=== PATIENT | female | born 2000 | race Caucasian/White ===

== ENCOUNTER 2022-03-14 13:05 | Emergency (ER) | payer BC, SELFPAY ==
[2022-03-14 14:37] VITALS: BP 102/69; PULSE 106; RESP 18; TEMP 37.4; O2SAT 100
--- NOTE | 2022-03-14 16:21 | ED.URI ---
HPI - URI/Sore Throat General Chief Complaint: Upper Respiratory Infection Stated Complaint: bodaches,chills,sorethroat Time Seen by Provider: 03/14/22 16:16 Source: patient Mode of arrival: ambulatory Limitations: no limitations History of Present Illness HPI Narrative: Patient presents today complaining of fever up to 100.3, body aches, sore throat, chills since yesterday. She currently rates her sore throat 10 and has been taking NyQuil with some relief. Denies any cough, congestion, rhinorrhea. Denies any sick contacts. Related Data Home Medications Medication Instructions Recorded Confirmed No Home Medications 03/14/22 03/14/22 Allergies Allergy/AdvReac Type Severity Reaction Status Date / Time No Known Allergies Allergy Verified 03/14/22 14:32 Review of Systems Review of Systems: CONSTITUTIONAL: Denies sweats.+ Fever, body aches, chills EYES: Denies visual changes, redness, or discharge. ENT: Denies rhinorrhea, congestion, otalgia.+ sore throat CARDIOVASCULAR: Denies chest pain, palpitations, or edema. RESPIRATORY: Denies cough or dyspnea. GASTROINTESTINAL: Denies abdominal pain, nausea, vomiting, or diarrhea. GENITOURINARY: Denies dysuria or hematuria. SKIN: Denies rash, itching, or wounds. MUSCULOSKELETAL: Denies back pain, joint pain, or myalgia. NEUROLOGIC: Denies headache, numbness, tingling, or weakness. PSYCH: Denies depression or anxiety. PMFSH Comments At time of signature, I have reviewed and agree with nursing past medical, surgical, social and family history unless otherwise noted. Please see nursing chart for further information. There is no relevant family history pertinent to the presenting complaint Exam Narrative: GENERAL: Well-appearing, well-nourished, and in no acute distress. HEAD: Normocephalic, atraumatic. EYES: EOMI. No redness or drainage. Conjunctivae normal. ENT: Mucous membranes pink and moist. Nares clear. No rhinorrhea. TMs normal bilaterally. Throat mildly erythematous without edema or exudate. Uvula midline. NECK: Normal AROM. Supple. No lymphadenopathy. CHEST: No respiratory distress. Clear to auscultation. HEART: Regular rate and rhythm. No murmur appreciated. Normal peripheral pulses. EXTREMITIES: Normal range of motion. No edema. SKIN: Warm, dry, no rash. Capillary refill normal. Normal skin turgor. NEURO: No focal deficits. Alert and oriented x3. Gait steady. PSYCH: Normal affect. No signs of depression or anxiety. Course Course Level of Care: Express Care Visit Vital Signs Vital signs: Vital Signs Temperature 99.4 F 03/14/22 14:37 Pulse Rate 106 H 03/14/22 14:37 Respiratory Rate 18 03/14/22 14:37 Blood Pressure 102/69 03/14/22 14:37 Pulse Oximetry 100 03/14/22 14:37 Oxygen Delivery Room Air 03/14/22 14:37 Temperature 99.4 F 03/14/22 14:37 Pulse Rate 106 H 03/14/22 14:37 Respiratory Rate 18 03/14/22 14:37 Blood Pressure 102/69 03/14/22 14:37 Pulse Oximetry 100 03/14/22 14:37 Oxygen Delivery Room Air 03/14/22 14:37 reviewed MDM - URI/Sore Throat Differential Diagnosis Differential diagnosis: Likely upper respiratory infection, viral infection, influenza, pharyngitis and other ( strep throat) Medical Records Attestation: I reviewed the patient's medical records. Medical records narrative: influenza negative Lab Data Attestation: I reviewed the patient's lab results. Labs: Influenza A Screen Negative Reference Range: Negative Influenza B Screen Negative Reference Range: Negative Strep Screen Presumptive Negative *(Reference Range: Negative)* Critical Care Time Critical Care Time Critical Care Time: No Discharge Plan Discharge Clinical Impression: Viral syndrome Patient Disposition: Home, Self-
== END 2022-03-14 16:46 | disposition home or self-care (01) ==
PROVIDERS: Emergency Provider Nurse Practitioner; PCP Family Medicine Sports Medicine
DX: B34.9 Viral infection, unspecified (principal)
CPT/HCPCS: 87081; 87804; 87880; 99203; G0463

== ENCOUNTER 2022-06-19 08:53 | Emergency (ER) | payer BC, SELFPAY ==
--- NOTE | 2022-06-19 09:11 | ED.URI ---
HPI - URI/Sore Throat General Stated Complaint: sorethroat Time Seen by Provider: 06/19/22 09:11 History of Present Illness HPI Narrative: 22 y/o female presented for c/o sore throat for 24 hours. Endorses mild runny nose and headache. Denies sick contacts. Not taking anything for symptoms. Related Data Home Medications Medication Instructions Recorded Confirmed No Home Medications 03/14/22 03/14/22 Allergies Allergy/AdvReac Type Severity Reaction Status Date / Time No Known Allergies Allergy Verified 06/19/22 09:18 Review of Systems Review of Systems: CONSTITUTIONAL: Denies body aches, fever, chills, or sweats. EYES: Denies visual changes, redness, or discharge. ENT: Denies otalgia. CARDIOVASCULAR: Denies chest pain, palpitations, or edema. RESPIRATORY: Denies dyspnea. GASTROINTESTINAL: Denies abdominal pain, nausea, vomiting, or diarrhea. SKIN: Denies rash, itching, or wounds. MUSCULOSKELETAL: Denies back pain, joint pain, or myalgia. [facility] Past Medical History Medical History (Updated 06/19/22 @ 09:20 by Jackie Paez, [employer]) No pertinent past medical history Exam Narrative: GENERAL: well-appearing, no acute distress. EYES: conjunctivae clear ENT: Mucous membranes moist. TMs pearly ceballos with normal light reflex bilaterally; no tragal tenderness. Oropharynx not erythematous without lesions. Tonsils enlarged 1+ without exudate. No drooling, no hoarseness, no trismus, uvula midline. No tripod positioning, hot potato voice, or soft palate swelling. NECK: Supple. No lymphadenopathy CHEST: Clear to auscultation, breath sounds equal. HEART: Regular rate and rhythm. No murmur heard. SKIN: Warm, dry, no rash. NEURO: Alert and oriented x3. Course Course Emergency Course: Patient is aware of diagnosis, understands and agrees to treatment plan. Anticipatory guidance given. Patient agrees to follow-up as directed and is aware of reasons to seek care at the emergency department. Portions of this record may have been created with voice recognition software Level of Care: Express Care Visit MDM - URI/Sore Throat MDM Narrative Medical decision making narrative: strep result reviewed with pt. Advise supportive treatments. Patient is appropriate for outpatient treatment and follow-up. Differential Diagnosis Differential diagnosis: Likely upper respiratory infection, viral infection and pharyngitis Discharge Plan Discharge Clinical Impression: Pharyngitis Qualifiers: Pharyngitis/tonsillitis etiology: unspecified etiology Qualified Code(s): J02.9 - Acute pharyngitis, unspecified Patient Disposition: Home, Self-Care Condition: Stable Instructions: Antibiotic Form, Pharyngitis (ED) Additional Instructions: Rapid strep swab was negative today You will be notified in a few days if the culture comes back positive for strep, and appropriate antibiotics will be called in at that time. if symptoms are due to a viral illness, it is not treated with antibiotics. Viral symptoms can be present for up to 10-14 days. Recommend Flonase spray and Zyrtec for sinus congestion Cough syrup may cause drowsiness; avoid driving or take it at night time. Tylenol every 8 hours as needed for pain/fever Soft foods, cool liquids, warm tea. Gargle with warm saltwater twice a day. Chloraseptic spray and throat lozenges. Rest and stay hydrated. --Follow up with your PCP if symptoms are not improving, or sooner if symptoms are worsening. Go to the ER immediately if you cannot swallow your saliva, trouble breathing/wheezing, throat swelling, pain is persistent and severe Prescriptions: No Action No Home Medications Follow-up/Referrals: Ragini,Yenny Bowie MD [Primary Care Provider] -
[2022-06-19 09:14] VITALS: BP 120/71; PULSE 89; RESP 18; TEMP 36.9; O2SAT 100
== END 2022-06-19 09:24 | disposition home or self-care (01) ==
PROVIDERS: Emergency Provider Nurse Practitioner Family; PCP Family Medicine Sports Medicine
DX: J02.9 Acute pharyngitis, unspecified (principal)
CPT/HCPCS: 87081; 87880; 99213; G0463

== ENCOUNTER 2022-09-04 08:10 | Emergency (ER) | payer BC, SELFPAY ==
[2022-09-04 08:21] VITALS: BP 109/65; PULSE 93; RESP 18; TEMP 36.6; O2SAT 99
--- NOTE | 2022-09-04 08:39 | ED.URI ---
HPI - URI/Sore Throat General Chief Complaint: Upper Respiratory Infection Stated Complaint: sore throat Time Seen by Provider: 09/04/22 08:34 Source: patient Mode of arrival: ambulatory Limitations: no limitations History of Present Illness HPI Narrative: Patient presents today complaining of sore throat, cough, rhinorrhea, congestion, body aches since last night. Denies shortness of breath or difficulty swallowing. Denies sick contacts. Currently rates her pain 7/10 and has tried no [id number] treatment prior to arrival. Related Data Allergies Allergy/AdvReac Type Severity Reaction Status Date / Time No Known Allergies Allergy Verified 09/04/22 08:16 Review of Systems Review of Systems: CONSTITUTIONAL: Denies fever, chills, or sweats.+ body aches EYES: Denies visual changes, redness, or discharge. ENT: Denies otalgia.+ rhinorrhea, congestion, sore throat CARDIOVASCULAR: Denies chest pain, palpitations, or edema. RESPIRATORY: Denies dyspnea.+ cough GASTROINTESTINAL: Denies abdominal pain, nausea, vomiting, or diarrhea. GENITOURINARY: Denies dysuria or hematuria. SKIN: Denies rash, itching, or wounds. MUSCULOSKELETAL: Denies back pain, joint pain, or myalgia. NEUROLOGIC: Denies headache, numbness, tingling, or weakness. PSYCH: Denies depression or anxiety. [facility] Past Medical History Medical History No pertinent past medical history Comments At time of signature, I have reviewed and agree with nursing past medical, surgical, social and family history unless otherwise noted. Please see nursing chart for further information. There is no relevant family history pertinent to the presenting complaint Exam Narrative: GENERAL: Well-appearing, well-nourished, and in no acute distress. HEAD: Normocephalic, atraumatic. EYES: EOMI. No redness or drainage. Conjunctivae normal. ENT: Mucous membranes pink and moist. Nares congested. No rhinorrhea. TMs normal bilaterally. Throat erythematous. Tonsils 3+ with white exudate. Uvula midline. NECK: Normal AROM. Supple. No lymphadenopathy. CHEST: No respiratory distress. Clear to auscultation. HEART: Regular rate and rhythm. No murmur appreciated. EXTREMITIES: Normal range of motion. No edema. SKIN: Warm, dry, no rash. Capillary refill normal. Normal skin turgor. NEURO: No focal deficits. Alert and oriented x3. Gait steady. PSYCH: Normal affect. No signs of depression or anxiety. Course Course Level of Care: Express Care Visit Vital Signs Vital signs: Vital Signs Temperature 97.8 F 09/04/22 08:21 Pulse Rate 93 09/04/22 08:21 Respiratory Rate 18 09/04/22 08:21 Blood Pressure 109/65 09/04/22 08:21 Pulse Oximetry 99 09/04/22 08:21 Oxygen Delivery Room Air 09/04/22 08:21 Temperature 97.8 F 09/04/22 08:21 Pulse Rate 93 09/04/22 08:21 Respiratory Rate 18 09/04/22 08:21 Blood Pressure 109/65 09/04/22 08:21 Pulse Oximetry 99 09/04/22 08:21 Oxygen Delivery Room Air 09/04/22 08:21 Reviewed MDM - URI/Sore Throat MDM Narrative Medical decision making narrative: Rapid strep positive. Prescription for amoxicillin sent to pharmacy. Anticipatory guidance given. Differential Diagnosis Differential diagnosis: Likely upper respiratory infection, sinusitis, viral infection, pharyngitis and other (Strep throat) Lab Data Attestation: I reviewed the patient's lab results. Labs: Strep Screen Positive Group A Strep *(Reference Range: Negative)* Critical Care Time Critical Care Time Critical Care Time: No Discharge Plan Discharge Clinical Impression: Strep throat Patient Disposition: Home, Self-Care Condition: Stable Instructions: Antibiotic Form, Strep Throat (DC) Additional Instructions: You have tested positive for strep throat. Please take the amoxicillin as prescribed unt
== END 2022-09-04 08:44 | disposition home or self-care (01) ==
PROVIDERS: Emergency Provider Nurse Practitioner; PCP Family Medicine Sports Medicine
DX: J02.0 Streptococcal pharyngitis (principal); Z86.16 Personal history of COVID-19
CPT/HCPCS: 87880; 99213; G0463